=== PATIENT | male | born 1965 | race Caucasian/White ===

== ENCOUNTER 2022-08-18 23:20 | Emergency (ER) | payer OTHER ==
[~2022-08-18] VITALS: Ht 170.2 cm; Wt 131.5 kg
[2022-08-18 23:20] VITALS: BP 147/71
--- NOTE | 2022-08-18 23:46 | NUR ---
PT HOOKED UP TO MONITOR.
[2022-08-18] MEDS ORDERED: ONDANSETRON 4 MG/2 ML VIAL IVP ONE (23:50)
[2022-08-18] MEDS: NACL 0.9% 1,000 ML IV ONE (23:50)
[2022-08-19 00:03] LABS: BASOPHILS % (AUTO) 0.2 % (0.0-2.0); EOSINOPHILS # (AUTO) 0.1 K/uL (0-0.4); EOSINOPHILS % (AUTO) 1.6 % (0.0-4.0); HEMATOCRIT 42.8 % (36-52); HEMOGLOBIN 14.3 g/dL (12.0-18.0); LYMPHOCYTES # (AUTO) 1.3 K/uL (2.0-11.5); LYMPHOCYTES % (AUTO) 16.8 % (20.5-51.1); MEAN CORPUSCULAR HEMOGLOBIN 31 pg (27-31); MEAN CORPUSCULAR HGB CONC 33 g/dL (33-37); MEAN CORPUSCULAR VOLUME 93.6 fL (80-94); MONOCYTES # (AUTO) 0.7 K/uL (0.8-1.0); MONOCYTES % (AUTO) 9.7 % (1.7-9.3); NEUTROPHILS # (AUTO) 5.5 K/uL (1.8-7.7); NEUTROPHILS % (AUTO) 71.7 % (42.2-75.2); PLATELET COUNT (AUTO) 270 K/uL (140-450); RED BLOOD CELL COUNT(AUTO) 4.57 MIL/uL (4.20-6.10); RED CELL DISTRIBUTION WIDTH 12.6 % (11.6-13.7); WHITE BLOOD COUNT (AUTO) 7.6 K/uL (4.8-10.8)
[2022-08-19 00:25] LABS: ALBUMIN 4.2 g/dL (3.4-5.0); ANION GAP 8.5 (8-16); CARBON DIOXIDE 33.8 mmol/L (21-32); CREATININE 1.2 mg/dL (0.6-1.3); POTASSIUM 3.3 mmol/L (3.5-5.1); TOTAL BILIRUBIN 0.7 mg/dL (0.0-1.0)
[2022-08-19] MEDS ORDERED: MECLIZINE 25 MG TAB PO ONE (00:45)
[2022-08-19] MEDS: NACL 0.9% 1,000 ML IV ONE (00:47)
--- NOTE | 2022-08-19 00:56 | NUR ---
Attempted to collect urine, pt stated he does not have to go at this time
--- NOTE | 2022-08-19 01:45 | NUR ---
Attemped to collect urine again, pt was assisted but stated he was unable to go
--- NOTE | 2022-08-19 03:40 | NUR ---
Attempted to ambulate patient, pt continues to complain of dizziness and noted unsteady and stumbling during turns. ERMD made aware
[2022-08-19] MEDS ORDERED: QUEtiapine FUMARATE 100 MG TAB PO ONE (04:20)
[2022-08-19] MEDS ORDERED: CARV25TA PO (04:26)
[2022-08-19] MEDS ORDERED: SERT25TA PO (04:26)
[2022-08-19] MEDS ORDERED: LEVO0.2T5 PO (04:26)
[2022-08-19] MEDS ORDERED: FURO-570 PO (04:26)
[2022-08-19] MEDS ORDERED: LOSA100T1 PO (04:26)
[2022-08-19] MEDS ORDERED: QUET100T PO (04:26)
[2022-08-19] MEDS ORDERED: BUS5 PO (04:26)
--- NOTE | 2022-08-19 04:31 | NUR ---
BELONGINGS LIST DONE.
--- NOTE | 2022-08-19 04:38 | NUR ---
Xray by bedside
--- NOTE | 2022-08-19 04:42 | NUR ---
Pt taken to CT
--- NOTE | 2022-08-19 05:00 | NUR ---
Pt back from CT
--- NOTE | 2022-08-19 06:26 | NUR ---
Report given to Shauna SHEFFIELD at [facility] for transfer of care.
--- NOTE | 2022-08-19 07:29 | NUR ---
RECEIVED REPORT FROM DANNY RN AND MICHAEL RN, TRANSFER OF CARE AT THIS TIME. RECEIVED PT IN BED, RESPIRATIONS EVEN AND UNLABORED. SATTING ON 86% RA, PLACED ON 1LPM NC SATTING NOW 93%.
--- NOTE | 2022-08-19 07:29 | NUR ---
Jorge goncalves in [facility] - 08/19/22 at 0733 by FRANSISCA Report given to Precious for transfer of care.
[2022-08-19 07:36] VITALS: BP 165/74
[2022-08-19] MEDS ORDERED: LORazepam 1 MG TAB PO ONE (08:15)
--- NOTE | 2022-08-19 08:25 | NUR ---
PT ATTEMPTED TO STAND AND URINATE, STATES CONTINUED DIZZINESS, PT RETURN BACK IN BED.
--- NOTE | 2022-08-19 09:08 | NUR ---
[facility] AT BEDSIDE FOR TRANSPORT
--- NOTE | 2022-08-19 09:14 | NUR ---
Patient to be transferred to [facility]. Is being transferred due to INSURANCE PURPOSES. Receiving facility has accepting physician and available space. ER physician has signed transfer form. Patient or responsible republican has agreed to transfer and signed form. Patient belongings inventoried and will be sent with patient. Copy of nursing notes, lab reports, EKG, Physicians Orders and X-rays to be sent with patient. Report called to DILLAN SHEFFIELD at receiving facility. [facility] ambulance service has been called for transfer. ETA is 30MIN.
== END 2022-08-19 09:14 | disposition short-term general hospital (02) ==
LOC: MED 23:20
DX: R42 Dizziness and giddiness (principal); Z20.822 Contact with and (suspected) exposure to COVID-19; J44.9 Chronic obstructive pulmonary disease, unspecified; I10 Essential (primary) hypertension; I50.9 Heart failure, unspecified; Z79.899 Other long term (current) drug therapy
CPT/HCPCS: 36415; 70450; 71045; 80053; 84484; 85025; 87426; 96374; 99285; J2405; J8597; Q0092